=== PATIENT | female | born 1985 | race Two or more races ===

== ENCOUNTER → 2024-10-29 | Emergency (ER) | payer OTHER ==
[~2024-10-29] VITALS: Ht 167.6 cm; Wt 521.6 kg
[2024-10-29 07:06] VITALS: BP 130/89; O2SAT 100
== END | disposition left against medical advice (07) ==
LOC: ER 06:38
DX: Z53.21 Procedure and treatment not carried out due to patient leaving prior to being seen by health care provider (principal)

== ENCOUNTER 2025-01-20 10:15 | Emergency (ER) | payer OTHER ==
[~2025-01-20] VITALS: Ht 167.6 cm; Wt 90.7 kg
[2025-01-20] MEDS ORDERED: TRIAMCINOLONE ACETONIDE 40 MG/ML VIAL ONE (10:25)
[2025-01-20] MEDS ORDERED: TRIAMCINOLONE ACETONIDE 40 MG/ML VIAL IM ONE (10:30)
[2025-01-20] MEDS ORDERED: FLONASE16 GM IH (12:04)
[2025-01-20] MEDS ORDERED: ZYRTEC10 M3 PO (12:04)
[2025-01-20] MEDS ORDERED: CEFDINIR300 MG PO (12:04)
== END 2025-01-20 12:12 | disposition home or self-care (01) ==
LOC: ER 10:19
DX: J32.9 Chronic sinusitis, unspecified (principal)